=== PATIENT | male | born 1960 | race Caucasian/White ===

== ENCOUNTER 2016-09-08 11:18 | Emergency (ER) | payer BC ==
[2016-09-08] MEDS ORDERED: Aspirin 81 MG Tab.Chew PO ONE (11:43)
[2016-09-08] MEDS ORDERED: Nitroglycerin 0.4 MG Tab.SL SL ONE (11:43)
[2016-09-08] MEDS ORDERED: Alum Hydrox/Mag Hydrox/Simeth 30 ML, Lidocaine 2% 15 ML PO ONE ×2 (11:43)
[2016-09-08] MEDS ORDERED: Sodium Chloride 0.9% 1,000 ML IV SCH (11:45)
--- NOTE | 2016-09-08 11:45 | EDM.PDOC ---
ED HISTORY OF PRESENT ILLNESS - General Chief Complaint: Chest Pain Stated Complaint: CHEST PAIN Time Seen by Provider: 09/08/16 11:35 Source of Information: Reports: Patient History Limitations: Reports: No limitations - History of Present Illness INITIAL COMMENTS - FREE TEXT/NARRATIVE: Patient is a 55-year-old male who presents to the ED complaining of substernal chest discomfort. Patient states this developed last night while going to bed. States with lying down the pain increased extending across his chest. Symptoms improved with sitting up/standing/and with leaning forward. Patient had to sleep last night in the recliner. He does have a history of pericarditis x2 with somewhat similar symptoms. Discomfort is increased with taking a deep breath. Is described as sharp, achy, pressure discomfort rated a 4/10 currently. Complains of a mild headache with no dizziness or lightheadedness. He denies any fever/chills, shortness of breath, cough, or any additional viral-like symptoms. He took Aleve last night with no improvement. States the discomfort is not worsened with exertion. Nor does he recall any injury or activity that may have precipitated this. Patient denies any history of DVT, PE, hemoptysis, unilateral, Recent trauma, recent surgery, recent hospitalization. Pertinent past medical history includes pericarditis. He is currently taking no medications. He has no pertinent past surgical history. He does not smoke. Occasionally utilizes alcohol. States he has first-degree relative brother who recently due to PA. Timing/Duration: Reports: Constant, Waxing/waning Severity: moderate Location, General: Reports: chest Quality: Reports: Ache, Dull, Pressure, Sharp. Denies: Burning, Stabbing, Throbbing Improves with: Reports: Other (See HPI) Worsens with: Reports: Other (See HPI) Context, General: Denies: Activity, Exercise, Lifting, Sick contact, Trauma Associated Symptoms (General): Reports: chest pain, nausea/vomiting ( intermittent). Denies: cough, cough w sputum, diaphoresis, fever/chills, loss of appetite, shortness of breath Treatments RECONCILIATION SPECIALIST: Reports: NSAIDS - Related Data Allergies/ADRs: Allergies Allergy/AdvReac Type Severity Reaction Status Date / Time No Known Allergies Allergy Verified 09/08/16 11:28 Home Meds: Home Meds Acetaminophen/HYDROcodone [[place] 325-5 MG] 1 tab PO Q6H PRN #20 tablet 09/08/16 [Rx] Past Medical History Cardiovascular History: Reports: Other (see below) Other Cardiovascular History: pericarditis Social & Family History - Tobacco Use Smoking Status *Q: Never Smoker - Caffeine Use Caffeine Use: Reports: None - Recreational Drug Use Recreational Drug Use: No ED ROS GENERAL - Review of Systems Review Of Systems: See Below Constitutional: Denies: fever, chills HEENT: Reports: Ear pain (mild left ear ache), Throat pain (throat irritation. ) . Denies: Rhinitis, Throat swelling Respiratory: Denies: shortness of breath, wheezing, cough, sputum, hemoptysis Cardiovascular: Reports: Chest pain, Blood pressure problem. Denies: Dyspnea on exertion, Edema, Lightheadedness, Orthopnea, PND, Syncope GI/Abdominal: Denies: Abdominal pain, Constipation, Diarrhea, Nausea, Vomiting Skin: Denies: rash Neurological: Reports: headache (mild, global). Denies: dizziness, numbness, tingling, weakness ED EXAM, GENERAL - Physical Exam Exam: See Below Exam Limited By: No limitations General Appearance: alert, WD/WN, no apparent distress Eye Exam: bilateral eye: EOMI, PERRL Ears: normal external exam, normal canal, hearing grossly normal, normal TMs Nose: normal inspection, normal mucosa, no blood. No: nasal tenderness, nasal swelling Throat/Mouth: Normal inspection, Normal oropharynx, Normal voice, No airway compromise Head: atraumatic, normocephalic Neck: normal inspection, supple, non-tender, full range of motion. No: lymphadenopathy (L), lymphadenopathy (R) Respiratory/Chest: no respiratory distress, lungs clear, normal breath sounds, no accessory muscle use, chest non-tender Cardiovascular: normal peripheral pulses, regular rate, rhythm, no edema, no murmur Peripheral Pulses: 2+: radial (R) GI/Abdominal: normal bowel sounds, soft, non tender, no organomegaly, no distention Back Exam: normal inspection. No: CVA tenderness (L), CVA tenderness (R) Extremities: normal inspection, normal range of motion, non-tender, no pedal edema Neurological: alert, oriented, CN II-XII intact, normal cognition, no motor/ sensory deficits Psychiatric: normal affect, normal mood Skin Exam: Warm, Dry, Intact, Normal color, No rash Course - Vital Signs Last Recorded V/S: Last Vital Signs Temp 98.2 F 09/08/16 16:03 Pulse 89 09/08/16 16:03 Resp 16 09/08/16 16:03 BP 111/76 09/08/16 16:03 Pulse Ox 96 09/08/16 16:03 - Orders/Labs/Meds Orders: Active Orders 24 hr Category Date Time Status EKG Documentation Completion [RC] STAT Care 09/08/16 11:32 Active Peripheral IV Care [RC] . DIRECTED Care 09/08/16 11:43 Active Peripheral IV Insertion Adult [OM.PC] Routine Oth 09/08/16 11:43 Ordered Labs: Laboratory Tests 09/08/16 09/08/16 09/08/16 Range/Units 11:25 11:25 11:25 WBC 10.26 H (4.23-9.07) K/mm3 RBC 4.84 (4.63-6.08) M/mm3 Hgb 15.3 (13.7-17.5) gm/L Hct 44.8 (40.1-51.0) % MCV 92.6 H (79.0-92.2) fl MCH 31.6 (25.7-32.2) pg MCHC 34.2 (32.2-35.5) g/dl RDW Std Deviation 43.5 (35.1-43.9) fL Plt Count 261 (163-337) K/mm3 MPV 9.8 (9.4-12.3) fl Neut % (Auto) 76.7 H (34.0-67.9) % Lymph % (Auto) 11.3 L (21.8-53.1) % Bracken % (Auto) 9.7 (5.3-12.2) % Eos % (Auto) 1.8 (0.8-7.0) Baso % (Auto) 0.3 (0.1-1.2) % Neut # 7.87 H (1.78-5.38) K/mm3 Lymph # 1.16 L (1.32-3.57) K/mm3 Bracken # 1.00 H (0.30-0.82) K/mm3 Eos # 0.18 (0.04-0.54) K/mm3 Baso # 0.03 (0.01-0.08) K/mm3 ESR 10 (0-15) mm/hr Sodium (136-145) mEq/L Potassium (3.5-5.1) mEq/L Chloride (98-107) mEq/L Carbon Dioxide (21-32) mEq/L Anion Gap (5-15) BUN (7-18) mg/dL Creatinine (0.7-1.3) mg/dL Est Cr Clr Drug Dosing mL/min Estimated GFR (MDRD) (>60) mL/min BUN/Creatinine Ratio (14-18) Glucose (74-106) mg/dL Calcium (8.5-10.1) mg/dL Total Bilirubin (0.2-1.0) mg/dL AST (15-37) U/L ALT (16-63) U/L Alkaline Phosphatase (46-116) U/L Troponin I < 0.017 (0.00-0.056) ng/mL C-Reactive Protein (<1.0) mg/dL Total Protein (6.4-8.2) g/dl Albumin (3.4-5.0) g/dl Globulin gm/dL Albumin/Globulin Ratio (1-2) Lipase (73-393) U/L 09/08/16 09/08/16 Range/Units 11:25 14:41 WBC (4.23-9.07) K/mm3 RBC (4.63-6.08) M/mm3 Hgb (13.7-17.5) gm/L Hct (40.1-51.0) % MCV (79.0-92.2) fl MCH (25.7-32.2) pg MCHC (32.2-35.5) g/dl RDW Std Deviation (35.1-43.9) fL Plt Count (163-337) K/mm3 MPV (9.4-12.3) fl Neut % (Auto) (34.0-67.9) % Lymph % (Auto) (21.8-53.1) % Bracken % (Auto) (5.3-12.2) % Eos % (Auto) (0.8-7.0) Baso % (Auto) (0.1-1.2) % Neut # (1.78-5.38) K/mm3 Lymph # (1.32-3.57) K/mm3 Bracken # (0.30-0.82) K/mm3 Eos # (0.04-0.54) K/mm3 Baso # (0.01-0.08) K/mm3 ESR (0-15) mm/hr Sodium 140 (136-145) mEq/L Potassium 4.4 (3.5-5.1) mEq/L Chloride 103 (98-107) mEq/L Carbon Dioxide 27 (21-32) mEq/L Anion Gap 14.4 (5-15) BUN 19 H (7-18) mg/dL Creatinine 1.1 (0.7-1.3) mg/dL Est Cr Clr Drug Dosing 83.28 mL/min Estimated GFR (MDRD) > 60 (>60) mL/min BUN/Creatinine Ratio 17.3 (14-18) Glucose 129 H (74-106) mg/dL Calcium 8.9 (8.5-10.1) mg/dL Total Bilirubin 0.8 (0.2-1.0) mg/dL AST 26 (15-37) U/L ALT 44 (16-63) U/L Alkaline Phosphatase 96 (46-116) U/L Troponin I < 0.017 (0.00-0.056) ng/mL C-Reactive Protein 2.3 H* (<1.0) mg/dL Total Protein 7.0 (6.4-8.2) g/dl Albumin 4.2 (3.4-5.0) g/dl Globulin 2.8 gm/dL Albumin/Globulin Ratio 1.5 (1-2) Lipase 221 (73-393) U/L Meds: Medications Discontinued Medications Generic Name Dose Route Start Last Admin Trade Name Freq PRN Reason Stop Dose Admin Aspirin 324 mg 09/08/16 11:43 09/08/16 11:49 Aspirin PO 09/08/16 11:44 324 mg ONETIME ONE Administration Al Hydroxide/Mg Hydroxide 30 0 ml 09/08/16 11:43 09/08/16 11:49 ml/ Lidocaine HCl 15 ml PO 09/08/16 11:44 45 ml ONETIME ONE Administration Hydromorphone HCl 0.5 mg 09/08/16 13:04 09/08/16 13:08 Dilaudid IVPUSH 09/08/16 13:05 0.5 mg ONETIME ONE Administration Hydromorphone HCl 1 mg 09/08/16 14:16 09/08/16 14:22 Dilaudid IVPUSH 09/08/16 14:17 1 mg ONETIME ONE Administration Sodium Chloride 1,000 mls @ 125 mls/hr 09/08/16 11:45 09/08/16 11:52 Normal Saline IV 125 mls/hr ASDIRECTED NICKO Administration Sodium Chloride 100 mls @ 60 mls/hr 09/08/16 12:30 09/08/16 13:20 Normal Saline IV 60 mls/hr ASDIRECTED NICKO Administration Ibuprofen 800 mg 09/08/16 15:34 Motrin PO 09/08/16 15:35 ONETIME ONE Iopamidol 100 ml 09/08/16 12:23 09/08/16 13:20 Isovue-370 (76%) IVPUSH 09/08/16 12:24 80 ml ONETIME ONE Administration Iopamidol 50 ml 09/08/16 12:23 09/08/16 13:20 Isovue-370 (76%) IVPUSH 09/08/16 12:24 50 ml ONETIME ONE Administration Nitroglycerin 0.4 mg 09/08/16 11:43 09/08/16 11:51 Nitrostat SL 09/08/16 11:44 0.4 mg ONETIME ONE Administration Sodium Chloride 10 ml 09/08/16 11:43 09/08/16 13:20 Saline Flush FLUSH 10 ml ASDIRECTED PRN Administration Keep Vein Open Sodium Chloride 10 ml 09/08/16 12:23 09/08/16 13:45 Saline Flush FLUSH 09/08/16 12:24 10 ml ONETIME ONE Administration - Re-Assessments/Exams Free Text/Narrative Re-Assessment/Exam: EKG revealed a sinus rhythm at a rate 85 with a MI interval of 184, QTC 434, normal P axis, borderline ST elevation in lateral leads no reciprocal changes. No other acute findings noted. CXR revealed: No acute finding. Labs reviewed: White blood cell count 10.26, hemoglobin is 15.3, platelets 261, neutrophil % 6.7, neutrophil number is 7.87, ESR 10, Sodium is 140, potassium of 4.4, creatinine 1.1, Troponin is 0.017, CRP is 2.3, lipase is 221. Reassessment, patient states discomfort had no improvement with taking the nitroglycerin or GI cocktail. He states the discomfort to his chest worsened with taking the nitroglycerin. Patient walked to radiology making symptoms worse. Vital signs are stable at this point. Unclear etiology of discomfort. Will obtain CTA of the chest. 09/08/16 12:14 09/08/16 13:04 Patient is returned from CT and is requesting something for the chest discomfort. Ordered Dilaudid 0.5 mg IV. 09/08/16 14:16 Reassessment, patient complaining of some chest discomfort. Ordered 1 mg Dilaudid IVP. Ordered a second troponin. 09/08/16 15:09 CT of the chest impression: no findings of pulmonary embolism, aortic aneurysm or aortic dissection. Mild atelectasis noted within both lung bases. Difficult to exclude minimal area of pneumonia within the left lung base. Please correlate if patient has any infectious symptoms. Other findings felt to be incidental as described above. Second troponin was negative. 09/08/16 15:35 Ordered ibuprofen 800mg PO x 1. Reassessment, pain to chest drastically improved with the last dosage of dilaudid. Will discharge patient home with instructions for pericarditis. Departure - Departure Time of Disposition: 15:35 Disposition: Home, Self-Care 01 Condition: good Clinical Impression: Pericarditis Qualifiers: Pericarditis type: unspecified type Chronicity: acute Qualified Code(s): I30.9 - Acute pericarditis, unspecified Prescriptions: Acetaminophen/HYDROcodone [[place] 325-5 MG] 1 tab PO Q6H PRN #20 tablet PRN Reason: Pain (Severe 7-10) Instructions: Pericarditis Referrals: Peyman Dickinson MD [Primary Care Provider] - Forms: ED Department Discharge, Return to Work/School Form Additional Instructions: As discussed history, examination, and labs/studies suggest current symptoms are related to pericarditis. Treatment is ibuprofen 800mg every 8 hrs for one week. Can also utilize tylenol 650mg every 6 hours for pain. For severe pain take norco 5/325 mg every 6 hours as needed. Do not take norco and tylenol together. No driving today or while taking norco. If unchanged after 1 wk of ibuprofen, please followup with PCP since you may require prednisone added to treatment regimen and/or obtain echocardiogram.Please return to the E.D. for worsening pain, n/v, fever/chills, shortness of breath, dizziness/ lightheadedness, or any additional new or worsening symptoms. - My Orders Last 24 Hours: My Active Orders 09/08/16 11:32 EKG Documentation Completion [RC] STAT 09/08/16 11:43 Peripheral IV Care [RC] . DIRECTED Peripheral IV Insertion Adult [OM.PC] Routine - Assessment/Plan Last 24 Hours: My Active Orders 09/08/16 11:32 EKG Documentation Completion [RC] STAT 09/08/16 11:43 Peripheral IV Care [RC] . DIRECTED Peripheral IV Insertion Adult [OM.PC] Routine
[2016-09-08] MEDS: Sodium Chloride 0.9% 10 ML Syringe FLUSH PRN ×2 (11:49→13:20)
[2016-09-08] MEDS ORDERED: Sodium Chloride 0.9% 10 ML Syringe FLUSH ONE (12:23)
[2016-09-08] MEDS ORDERED: Iopamidol 755 Mg/ML 100 ML Bottle IVPUSH ONE (12:23)
[2016-09-08] MEDS ORDERED: Iopamidol 755 MG/ML 50 ML Bottle IVPUSH ONE (12:23)
--- NOTE | 2016-09-08 12:23 | CR ---
Chest: Two views of the chest were obtained. Comparison: No previous study. Heart size is normal. Mild tortuosity of the thoracic aorta is seen. Minimal atelectasis noted above the left hemidiaphragm. Lungs otherwise are clear. Bony structures are unremarkable for the patient's age. Impression: 1. Minimal atelectasis above the left hemidiaphragm. 2. Nothing acute is otherwise seen on two-view chest x-ray. Diagnostic code #2
[2016-09-08] MEDS ORDERED: Sodium Chloride 0.9% 100 ML IV SCH (12:30)
[2016-09-08] MEDS ORDERED: HYDROmorphone 0.5 MG/0.5 ML Syringe IVPUSH ONE (13:04)
--- NOTE | 2016-09-08 13:52 | CT ---
CT chest Technique: Multiple axial sections through the chest were obtained. Intravenous contrast was utilized. Findings: Aorta shows no aneurysmal dilatation. No aortic dissection is seen. No filling defects are seen to indicate pulmonary embolism. Mediastinum and hilar regions show no adenopathy or mass. No pericardial thickening is seen. Small portion of the visualized upper abdominal structures are within normal limits. There is a hyperenhancing lesion seen within the left lobe of the liver most likely representing hemangioma. Very minimal coronary artery calcification is seen. Mild parenchymal density seen within both lung bases most likely representing atelectasis although minimal area of pneumonia is possible within the left base. Bone window settings were reviewed which shows minimal degenerative endplate spurring within the lower thoracic and upper lumbar spine. Impression: 1. No findings of pulmonary embolism, aortic aneurysm or aortic dissection. 2. Mild atelectasis noted within both lung bases. Difficult to exclude minimal area of pneumonia within the left lung base. Please correlate if patient has any infectious symptoms. 3. Other findings felt to be incidental as described above. Diagnostic code #2
[2016-09-08] MEDS ORDERED: HYDROmorphone 1 MG/ML Syringe IVPUSH ONE (14:16)
[2016-09-08] MEDS ORDERED: Ibuprofen 800 MG Tab PO ONE (15:34)
[2016-09-08 16:29] VITALS: BP 111/76
== END 2016-09-08 16:03 | disposition home or self-care (01) ==
LOC: JD.ED 11:18
DX: I30.9 Acute pericarditis, unspecified (principal)
CPT/HCPCS: 36415; 71020; 71275; 80053; 83690; 84484; 85025; 85652; 86140; 93005; 96361; 96374; 96376; 99285; A9270; J1170; J7030; J7040; J7050; Q9967; 99284

== ENCOUNTER 2020-05-28 19:48 | Emergency (ER) | payer BC ==
[2020-05-28 20:05] VITALS: BP 148/85; PULSE 65
[2020-05-28] MEDS ORDERED: Lidocaine 1% 10 ML MDV INJECT ONE (20:17)
[2020-05-28] MEDS ORDERED: Diphtheria,Pertussis(Acell),Tetanus Vaccine 0.5 ML Syringe IM ONE (20:17)
[2020-05-28] MEDS ORDERED: Penicillin V Potassium 500 MG Tab PO ONE (21:43)
--- NOTE | 2020-05-28 21:49 | EDM.PDOC ---
ED HPI GENERAL MEDICAL PROBLEM - General Chief Complaint: Laceration Stated Complaint: lip laceration from fall Time Seen by Provider: 05/28/20 20:05 Source of Information: Reports: Patient, RN Notes Reviewed - History of Present Illness INITIAL COMMENTS - FREE TEXT/NARRATIVE: 59 yr old male tripped, fell in his shop striking face against a work bench. Deep jagged laceration L lower mouth and multiple deep jagged lacerations R upper mouth. No teeth loose or knocked out. No LOC. No warner or other unusual sx. Upper Lip Pain Score (Numeric/FACES): 6 - Related Data Allergies Allergy/AdvReac Type Severity Reaction Status Date / Time No Known Allergies Allergy Verified 05/28/20 20:05 Home Meds: Home Meds Penicillin V Potassium [Veetids] 500 mg PO Q6H #20 tab 05/28/20 [Rx] Past Medical History - Past Health History Medical/Surgical History: Denies Medical/Surgical History Cardiovascular History: Reports: Other (See Below) Other Cardiovascular History: pericarditis Psychiatric History: Reports: None Social & Family History - Tobacco Use Tobacco Use Status *Q: Unknown Ever Used Tobacco - Caffeine Use Caffeine Use: Reports: None ED ROS GENERAL - Review of Systems Review Of Systems: See Below Constitutional: Denies: Fever, Chills HEENT: Reports: Other (jagged mouth lacerations as described above). Denies: Ear Discharge, Nose Pain, Vertigo, Vision Change Respiratory: Denies: Shortness of Breath Cardiovascular: Denies: Chest Pain GI/Abdominal: Denies: Abdominal Pain, Nausea, Vomiting Musculoskeletal: Denies: Neck Pain, Back Pain Neurological: Denies: Dizziness, Headache ED EXAM, SKIN/RASH Exam: See Below General Appearance: Alert, Mild Distress Eye Exam: Bilateral Eye: PERRL Ears: Normal External Exam Nose: Normal Inspection Throat/Mouth: Normal Teeth, Normal Gums, Normal Voice, Other (2 cm jagged laceration L lower lip, 3 cm jagged laceration R lower lip, R mid mid mouth and 2nd 2 cm laceration lateral to that R lower mouth with narrow band of intact tissue between this 2 large deep jagged lacerations l) ED SKIN PROCEDURES - Laceration/Wound Repair Right Mouth Appearance: Irregular, Other (jagged deep laceration R lower mouth, does cross [place] border) Local Anesthesia - Lidocaine (Xylocaine): 1% Plain Skin Prep: Saline Suture Size: 4-0 Suture Type: Nylon Suture Size: 4-0 Repaired with: Vicryl Left Lower Mouth Appearance: Irregular, Other (2 cm long deep, jagged gaping irregular lace with multiple flaps) Distal NVT: [facility] Intact Anesthetic Type: Local Local Anesthesia - Lidocaine (Xylocaine): 1% Plain Exploration/Debridement/Repair: Minimal Debridement Suture Size: 4-0 # of Sutures: 8 Suture Type: Nylon Suture Size: 4-0 # of Sutures: 1 Course - Vital Signs Last Recorded V/S: Last Vital Signs Temp 97.2 F 05/28/20 20:03 Pulse 65 05/28/20 20:03 Resp 16 05/28/20 20:03 BP 148/85 H 05/28/20 20:03 Pulse Ox 98 05/28/20 20:03 - Orders/Labs/Meds Meds: Medications Discontinued Medications Generic Name Dose Route Start Last Admin Trade Name Freq PRN Reason Stop Dose Admin Diphtheria/Tetanus/Acell Pertussis 0.5 ml 05/28/20 20:17 05/28/20 21:36 Adacel IM 05/28/20 20:18 0.5 ml .ONCE ONE Administration Lidocaine HCl 10 ml 05/28/20 20:17 05/28/20 21:35 Xylocaine 1% INJECT 05/28/20 20:18 10 ml ONETIME ONE Administration Penicillin V Potassium 500 mg 05/28/20 21:43 05/28/20 21:50 Veetids PO 05/28/20 21:44 500 mg ONETIME ONE Administration - Re-Assessments/Exams Free Text/Narrative Re-Assessment/Exam: 05/28/20 23:45 2nd laceration R upper mouth lateral to first laceration documented above. 2 cm long. Moderately deep, also jagged with flap configuration, gaping. No foreign mat seen. Cleaned with NS. Anesth. with 1 % lidocaine. Total of about 20 4-0 ethilon sutures the combined 2 laceration R upper mouth and about 5 4- 0 vicryl sutures. Departure - Departure Time of Disposition: 21:46 Disposition: Home, Self-Care 01 Condition: Fair Clinical Impression: Laceration of mouth - Discharge Information Prescriptions: Penicillin V Potassium [Veetids] 500 mg PO Q6H #20 tab Instructions: Mouth Laceration, [id number] Referrals: PCP,None [Primary Care Provider] - Forms: ED Department Discharge Additional Instructions: laceration care instr. Stitches out in 1 week, next Thursday. Call for appt. They can be taken out at clinic of your choice. Ice packs and elevation for swelling, especially this evening and tomorrow. Tylenol 3 to 4 times daily for discomfort as needed. Pen VK antibiotic 500 mg 4 times daily for 5 days or until gone. Prescription has been [facility] to [facility] You can pick that up tomorrow AM. Showering is OK. Keep mouth clean. Have rechecked any sign of infection. Sepsis Event Note (ED) - Evaluation Sepsis Screening Result: No Definite Risk - Focused Exam Vital Signs: Vital Signs Temp Pulse Resp BP Pulse Ox 05/28/20 20:03 97.2 F 65 16 148/85 H 98
== END 2020-05-28 22:00 | disposition home or self-care (01) ==
LOC: JD.ED 19:48
DX: S01.512A Laceration without foreign body of oral cavity, initial encounter (principal); Z23 Encounter for immunization; W01.198A Fall on same level from slipping, tripping and stumbling with subsequent striking against other object, initial encounter; Y92.513 Shop (commercial) as the place of occurrence of the external cause
CPT/HCPCS: 12002; 12011; 90471; 90715; 99282; 99282-25; A9270-GY; J2001

== ENCOUNTER 2021-06-06 08:06 | Day surgery (SDC) | payer BC ==
--- NOTE | 2021-06-05 14:14 | PCM.PREANE ---
Preanesthetic Assessment - Procedure Proposed Procedure: Right Total Knee Arthroplasty - Anesthesia/Transfusion/Family Hx Anesthesia History: Prior Anesthesia Without Reaction Family History of Anesthesia Reaction: No Transfusion History: No Prior Transfusion(s) Intubation History: Unknown - Review of Systems General: No Symptoms Pulmonary: No Symptoms (Smoker: only when drinking ETOH. ETOH: rarely) Cardiovascular: No Symptoms (Patient has not taken prescribed lisinopril and BP today is good. Pericarditis history of, 15 yrs ago angiogram with no need for stents.) Gastrointestinal: No Symptoms Neurological: No Symptoms Other: Reports: None - Physical Assessment NPO Status Date: 06/05/21 NPO Status Time: 23:59 Vital Signs: HR:57 Sat: 98% Temp: 97.2 B/P: 113/82 Resp: 16 Height: 1.83 m Weight: 82 kg ASA Class: 2 Mental Status: Alert & Oriented x3 Airway Class: Mallampati = 2 Dentition: Reports: Normal Dentition, Caries Thyro-Mental Finger Breadths: 3 Mouth Opening Finger Breadths: 3 ROM/Head Extension: Full Lungs: Clear to Auscultation, Normal Respiratory Effort Cardiovascular: Regular Rate, Regular Rhythm, No Murmurs - Lab Values: All labs reviewed and noted and within acceptable ranges to proceed with scheduled procedure. - Imaging/EKG Impressions: CXR: negative EKG: SR rate=71, LAD, inverted Twaves lead III., probable left atrial abnormality - Allergies Allergies/Adverse Reactions: Allergies Allergy/AdvReac Type Severity Reaction Status Date / Time No Known Allergies Allergy Verified 06/05/21 18:35 - Anesthesia Plan Pre-Op Medication Ordered: Other (preoperative oral pain meds (lyrica, tylenol, oxycontin) @ 0845) - Acknowledgements Anesthesia Type Planned: Spinal (Right Adductor Canal Block under US guidance for post operative pain control requested by Dr. Metz.) Pt an Appropriate Candidate for the Planned Anesthesia: Yes Alternatives and Risks of Anesthesia Discussed w Pt/Guardian: Yes Pt/Guardian Understands and Agrees with Anesthesia Plan: Yes PreAnesthesia Questionnaire - Past Health History Medical/Surgical History: Denies Medical/Surgical History Cardiovascular History: Reports: Other (See Below) Other Cardiovascular History: pericarditis Psychiatric History: Reports: None - HOME MEDS Home Medications: Home Meds Aspirin [Aspirin EC] 325 mg PO BID #60 tab 06/05/21 [Rx] Cholecalciferol (Vitamin D3) [Vitamin D3] 5,000 unit PO DAILY 06/05/21 [History] Cyclobenzaprine [Flexeril] 10 mg PO BID PRN #20 tab 06/05/21 [Rx] Multivitamin 1 tab PO DAILY 06/05/21 [History] oxyCODONE 5 - 10 mg PO Q4H PRN #40 tab 06/05/21 [Rx] - CURRENT (IN HOUSE) MEDS Current Meds: Current Medications Morphine Sulfate 8 mg/Epinephrine HCl 0.3 mg/Cefuroxime Sodium 750 mg/Ketorolac Tromethamine 30 mg/Sodium Chloride 7.9 ml 0 mg .XX ASDIRECTED PRN PRN Reason: Pain Stop: 06/06/21 16:00 Lactated Ringer's (Ringers, Lactated) 1,000 mls @ 125 mls/hr IV ASDIRECTED NICKO Stop: 06/06/21 23:00 Lidocaine/Sodium Bicarbonate (Lidocaine 1%/Sod Bicarbonate In Ns 8.4% 1 Ml Syringe) 0.25 ml IDERM ONETIME PRN PRN Reason: Prior to IV Start Stop: 06/06/21 18:00 Sodium Chloride (Sodium Chloride 0.9% 10 Ml Syringe) 10 ml FLUSH ASDIRECTED PRN PRN Reason: Keep Vein Open Stop: 06/06/21 18:00
[~2021-06-06 08:06] MED LIST: Acetaminophen 325 MG Tab PO SCH; Lactated Ringers 1,000 ML IV SCH; Lidocaine 1%/Sod Bicarbonate in NS 8.4% 1 ML Syringe IDERM PRN; Morphine 8 MG, EPINEPHrine 0.3 MG, Cefuroxime 750 MG, Ketorolac 30 MG, Sodium Chloride ... PRN; Pregabalin 25 MG Cap PO SCH; Sodium Chloride 0.9% 10 ML Syringe FLUSH PRN; oxyCODONE ER 10 MG TAB.ER PO SCH
[2021-06-06] MEDS ORDERED: Ropivacaine 0.5% 5 MG/ML 30 ML SDV ONE (09:00)
[2021-06-06] MEDS ORDERED: EPINEPHrine 1 MG/ML SDV ONE (09:00)
[2021-06-06] MEDS ORDERED: Ondansetron 4 MG/2 ML SDV ONE (09:32)
[2021-06-06] MEDS ORDERED: Lidocaine 1% 4 ML ONE (09:32)
[2021-06-06] MEDS ORDERED: fentaNYL 100 MCG/2 ML SDV ONE (09:32)
[2021-06-06] MEDS ORDERED: Midazolam 1 MG/ML 2 ML SDV ONE (09:32)
[2021-06-06] MEDS ORDERED: Propofol 200 MG/20 ML SDV ONE ×2 (09:32→10:40)
[2021-06-06] MEDS ORDERED: Vancomycin 1 GM SDV ONE (09:33)
[2021-06-06] MEDS ORDERED: ceFAZolin 1 GM Vial ONE (09:36)
[2021-06-06] MEDS ORDERED: fentaNYL 100 MCG/2 ML SDV IVPUSH PRN (11:42)
--- NOTE | 2021-06-06 11:43 | PCM.POSTAN ---
POST ANESTHESIA ASSESSMENT - MENTAL STATUS Mental Status: Alert, Oriented - VITAL SIGNS Vital Signs: Last Vital Signs Temp 36.2 C 06/06/21 08:20 Pulse 57 L 06/06/21 08:20 Resp 16 06/06/21 08:20 BP 113/82 06/06/21 08:20 Pulse Ox 98 06/06/21 08:20 - RESPIRATORY Respiratory Status: Respiratory Rate WNL, Airway Patent, O2 Saturation Stable, Supplemental Oxygen - CARDIOVASCULAR CV Status: Pulse Rate WNL, Blood Pressure Stable - GASTROINTESTINAL GI Status: No Symptoms - PAIN Pain Score: 0 - POST OP HYDRATION Hydration Status: Adequate & Stable - OBSERVATIONS Free Text/Narrative:: no anesthesia complications noted
--- NOTE | 2021-06-06 12:03 | PCM.SN.2 ---
- Free Text/Narrative Note: Right selective femoral nerve block at the adductor canal for post-procedure pain control under US guidance requested by Dr. Metz. Time Out: 1147 Start: 1147 End: 1155 Chart reviewed. Consent signed. Questions answered. Appropriate monitors applied. Time out performed. right mid-shaft femur identified with ultrasound, scanning medially of femur, the femoral artery in the adductor canal visualized, and the femoral nerve located laterally to the artery. The skin was prepped lateral to the ultrasound probe with chlorahexadine times two. The 21ga 4 insulated block needle was inserted under direct ultrasound guidance into the adductor canal. 25mL of 0.5% ropivacaine with 1:200,000 epinephrine was injected circumferentially around the nerve with intermittent negative aspiration noted. Patient tolerated the procedure well. Sterile technique noted along with sterile gloves, mask, and sterile probe cover. See picture on progress note and vital signs on nurses notes. Block completed in PACU. Sam Pierce CRNA
--- NOTE | 2021-06-06 13:19 | CR ---
Right knee: AP and lateral views of the right knee were obtained. Comparison: Prior right knee CT study of 05/17/21. Knee prosthesis is seen. Patellar prosthesis is noted. Components show normal alignment. Bone herman are seen within the proximal anterior tibia. Broken screw is noted posteriorly above the knee. No acute osseous abnormality is seen. Soft tissue air is noted. Impression: 1. Satisfactory postoperative radiographic appearance of recently placed right knee prostheses. 2. Other findings believed to be incidental as noted above. Diagnostic code #2
[2021-06-06] MEDS ORDERED: oxyCODONE 5 MG Tab PO ONE (14:00)
--- NOTE | 2021-06-06 14:23 | PCM48HPAN ---
Post Anesthesia Note - EVALUATION WITHIN 48HRS OF ANESTHETIC Vital Signs in Normal Range: Yes Patient Participated in Evaluation: Yes Respiratory Function Stable: Yes Airway Patent: Yes Cardiovascular Function Stable: Yes Hydration Status Stable: Yes Pain Control Satisfactory: Yes Nausea and Vomiting Control Satisfactory: Yes Mental Status Recovered: Yes Vital Signs: Last Vital Signs Temp 36.5 C 06/06/21 11:36 Pulse 57 L 06/06/21 08:20 Resp 15 06/06/21 12:29 BP 116/81 06/06/21 12:29 Pulse Ox 99 06/06/21 12:29 - COMMENTS/OBSERVATIONS Free Text/Narrative:: no anesthesia complications noted
[2021-06-06 17:21] VITALS: BP 91/56; PULSE 57
--- NOTE | 2021-06-16 17:06 | PCM.OPNOTE ---
- General Post-Op/Procedure Note Date of Surgery/Procedure: 06/06/21 Operative Procedure(s): right total knee arthroplasty with el[employer] robot[employer] Pre Op Diagnosis: right knee osteoarthrosis Post-Op Diagnosis: Same Anesthesia Technique: Local, MAC, Spinal Primary Surgeon: Shine Metz Anesthesia Provider: Sam Pierce Radiology Technologist: Sandra Mesa Radiology Technologist: Alisa Tay EBL in mLs: 150 Complications: None Condition: Good Free Text/Narrative:: 12/01 9mm 38x11
--- NOTE | 2021-06-17 10:45 | OR ---
DATE OF OPERATION: 06/06/2021 SURGEON: Shine Metz MD OPERATION PERFORMED: Right total knee arthroplasty with [employer] robot[employer]. PREOPERATIVE DIAGNOSIS: Right knee osteoarthrosis. POSTOPERATIVE DIAGNOSIS: Right knee osteoarthrosis. ANESTHESIA: Local MAC with spinal. ANESTHESIA PROVIDER: Frank Schneider. ASSISTANTS: Sandra Mesa PA-C; and Alisa Tay LPN. ESTIMATED BLOOD LOSS: 150 mL. COMPLICATIONS: None. CONDITION: Stable. IMPLANTS: 1. Lin size 6 press-fit CR femur. 2. Harwood size 5 press-fit tibial baseplate. 3. Lin size 5 9 mm CS polyethylene insert. 4. Lin size 38 x 11 mm press-fit patella. DESCRIPTION OF PROCEDURE: The patient was identified in the preop holding area. Proper site was marked and identified by the surgeon. The patient was taken back to the operating theater, where after adequate anesthesia, the patient's right lower extremity had a nonsterile tourniquet applied and then it was sterilely prepped and draped in the usual sterile fashion. OR time-out was performed. The patient received 2 g IV Ancef. Leg taylor was then applied to the right lower extremity. At this time, the right lower extremity was exsanguinated. Tourniquet was insufflated to 250 mmHg. Standard anterior incision was made. Medial parapatellar arthrotomy was created. Deep fibers of the MCL were raised and anterior fat pad was resected. Attention was turned to the patella. Patella measured a 26, it was resected to a 15 for a 38 x 11 mm patella. Drill holes were then drilled. Attention was then turned to the femur. Two 4.0 Schanz pins were placed intra-incisionally on the femur for the Harwood Fah[employer] robotic array and then 2 more were placed on the tibia 3 fingerbreadths below the tibial tubercle. The Harwood Fahad robotic arrays were placed on both the femur and the tibia at this time as well as checkpoints on the femur and tibia. Hip center rotation was then obtained. The medial and lateral malleoli were marked as well as the checkpoints were marked for the Lin Fahad robotic plan. The patient's knee was brought to full extension, varus and valgus stresses were applied, and then into 90 degrees of flexion. Harwood Fahad robotic plan for this patient was then undertaken to match the flexion and extension gaps. A straight saw blade was then brought in. Tibial cut was completed as well as an anterior femoral cut, anterior chamfer cut, and posterior femoral cut. Saw blade was then switched out and the distal femoral cut as well as the posterior chamfer cut was completed. All bony fragments were removed. At this time, medial and lateral menisci were resected as well as any posterior osteophytes. Attention was turned to the tibia. The size 5 trial baseplate was placed on the tibia and a size 6 trial femur was placed on the femur. A size 5 9 mm CS trial poly was placed. The patient's knee was brought to full extension and flexion. Varus and valgus stresses were applied, was found to be stable with no instability. No signs of liftoff or loosening on the tibial baseplate. At this time, femoral drill holes were drilled, and the tibia was stamped and drilled in proper rotation. All trial implants were then removed. The size 5 tibial baseplate was impacted into place, size 6 femoral component was impacted into place, and then a size 5 9 mm CS polyethylene insert was impacted into place. A size 38 x 11 mm press-fit patella was then press-fit into place. The tourniquet was deflated. Bleeders were cauterized. 1 L pulse lavage irrigation with Ancef was irrigated through the knee along with 400 mL IrriSept irrigation. Periarticular injection was completed. Topical tranexamic acid and vancomycin powder were applied. All checkpoints and pins were removed. At this point, a #2 barbed suture was used for closure of the medial parapatellar arthrotomy in flexion. 2- 0 Vicryl and Stratafix were used for subcutaneous closure. Prineo was used for cutaneous closure. 3-0 nylons were used for closure of the pin holes on the tibia. The patient had a sterile soft dressing applied. The patient had an RADHA wrap applied and was sent to PACU in stable condition. The patient tolerated the procedure well. MMAGUSTIN /[id number]
== END 2021-06-06 14:35 | disposition home or self-care (01) ==
LOC: JD.SDS 08:06
PROVIDERS: ATTEND Orthopaedic Surgery
DX: M17.11 Unilateral primary osteoarthritis, right knee (principal); I10 Essential (primary) hypertension; Z79.82 Long term (current) use of aspirin; Z98.890 Other specified postprocedural states; Z87.891 Personal history of nicotine dependence; Z79.899 Other long term (current) drug therapy
CPT/HCPCS: 01402; 64450; 73560-26-RT; 73560-RT; 76942; 97110-GP; 97116-GP; 97161-GP; A9270-GY; C1713; C1776; J0171; J0690; J0697; J1885; J2250; J2270; J2405; J2704; J2795; J3010; J3370; J7120

== ENCOUNTER 2021-11-14 16:06 | Emergency (ER) | payer BC ==
[2021-11-14] MEDS ORDERED: Sodium Chloride 0.9% 10 ML Syringe FLUSH PRN (16:30)
[2021-11-14] MEDS ORDERED: HYDROmorphone 1 MG/ML Syringe IVPUSH ONE (17:05)
[2021-11-14] MEDS ORDERED: HYDROmorphone 0.5 MG/0.5 ML Syringe IVPUSH ONE (18:03)
[2021-11-14 18:25] VITALS: BP 142/92; PULSE 82
== END 2021-11-14 18:16 | disposition home or self-care (01) ==
LOC: JD.ED 16:06
DX: R07.89 Other chest pain (principal); N28.9 Disorder of kidney and ureter, unspecified; M25.512 Pain in left shoulder; I10 Essential (primary) hypertension; Z79.82 Long term (current) use of aspirin; Z79.899 Other long term (current) drug therapy
CPT/HCPCS: 36415; 71045; 80053; 84484; 85025; 85379; 86140; 93005; 96374; 96376; 99284; J1170; J3490; 93010

== ENCOUNTER 2024-04-06 18:11 | Emergency (ER) | payer BC ==
[2024-04-06 18:26] VITALS: BP 155/91; PULSE 85
[2024-04-06 18:27] LABS: BASOPHILS PERCENT AUTO 0.3 % (0.0-1.0); EOSINOPHILS ABSOLUTE AUTO 0.1 K/mm3 (0.0-0.4); EOSINOPHILS PERCENT AUTO 0.7 % (0.0-6.0); HEMATOCRIT 44.8 % (42.0-52.0); HEMOGLOBIN 15.3 gm/dl (14.0-18.0); IMMATURE GRAN ABSOLUTE AUTO 0.03 K/mm3 (0.00-0.05); IMMATURE GRAN PERCENT AUTO 0.3 % (0.0-0.4); LYMPHOCYTES ABSOLUTE AUTO 1.4 K/mm3 (1.0-4.8); MEAN CORPUSCULAR HEMOGLOBIN 32.2 pg (28.0-32.0); MEAN CORPUSCULAR HGB CONC 34.2 g/dl (32.0-36.0); MEAN CORPUSCULAR VOLUME 94.3 fl (83.0-99.0); MEAN PLATELET VOLUME 9.9 fl (9.4-12.4); MONOCYTES ABSOLUTE AUTO 0.9 K/mm3 (0.0-0.8); MONOCYTES PERCENT AUTO 7.9 % (0.0-8.0); NEUTROPHILS ABSOLUTE AUTO 8.3 K/mm3 (1.8-7.7); NEUTROPHILS PERCENT AUTO 77.8 % (41.0-71.0); PLATELET COUNT,PLT 238 K/mm3 (150-400); RED BLOOD CELL COUNT 4.75 M/mm3 (4.52-5.90)
[2024-04-06 18:50] LABS: INR 0.96; PROTHROMBIN TIME 10.2 SECONDS (9.7-12.0)
[2024-04-06 18:52] LABS: PTT,PARTIAL THROMBOPLSTIN TIME 27.9 SECONDS (21.7-31.4)
[2024-04-06 19:05] LABS: A/G RATIO 1.2 (1-2); ALBUMIN 4.1 g/dl (3.4-5.0); BUN/CREATININE RATIO 11.8 (14-18); CREATININE 1.1 mg/dL (0.7-1.3); EST CRCL DRUG DOSING (CG) 75.44 mL/min; MAGNESIUM 1.9 mg/dL (1.8-2.4); PROTEIN TOTAL,TP 7.6 g/dl (6.4-8.2)
[2024-04-06] MEDS: Sodium Chloride 0.9% 1,000 ML IV SCH (19:34)
[2024-04-06 19:44] LABS: LACTIC ACID 0.6 mmol/L (0.4-2.0)
[2024-04-06] MEDS: Iopamidol 755 Mg/ML 100 ML Bottle IVPUSH ONE (20:04)
[2024-04-06] MEDS: Sodium Chloride 0.9% 10 ML Syringe FLUSH PRN (20:04)
[2024-04-06] MEDS: Sodium Chloride 0.9% 45 ML IV SCH (20:05)
== END 2024-04-06 21:50 | disposition home or self-care (01) ==
LOC: JD.ED 18:11
DX: I30.9 Acute pericarditis, unspecified (principal); I10 Essential (primary) hypertension; Z79.899 Other long term (current) drug therapy
CPT/HCPCS: 36415; 71045; 71275; 80053; 83605; 83735; 83880; 84484; 85025; 85379; 85610; 85652; 85730; 86140; 87040; 93005; 96360; 96361; 99285; J3490; J7030; Q9967

== ENCOUNTER 2024-04-15 20:16 | Emergency (ER) | payer BC ==
[2024-04-15 21:17] LABS: BASOPHILS PERCENT AUTO 0.4 % (0.0-1.0); EOSINOPHILS ABSOLUTE AUTO 0.2 K/mm3 (0.0-0.4); EOSINOPHILS PERCENT AUTO 2.6 % (0.0-6.0); HEMATOCRIT 32.7 % (42.0-52.0); IMMATURE GRAN ABSOLUTE AUTO 0.06 K/mm3 (0.00-0.05); IMMATURE GRAN PERCENT AUTO 0.8 % (0.0-0.4); LYMPHOCYTES ABSOLUTE AUTO 1.2 K/mm3 (1.0-4.8); LYMPHOCYTES PERCENT AUTO 16.1 % (24.0-44.0); MEAN CORPUSCULAR HEMOGLOBIN 31.8 pg (28.0-32.0); MEAN CORPUSCULAR HGB CONC 33.6 g/dl (32.0-36.0); MEAN CORPUSCULAR VOLUME 94.5 fl (83.0-99.0); MEAN PLATELET VOLUME 9.6 fl (9.4-12.4); MONOCYTES ABSOLUTE AUTO 0.7 K/mm3 (0.0-0.8); MONOCYTES PERCENT AUTO 9.1 % (0.0-8.0); NEUTROPHILS ABSOLUTE AUTO 5.2 K/mm3 (1.8-7.7); PLATELET COUNT,PLT 322 K/mm3 (150-400); RED BLOOD CELL COUNT 3.46 M/mm3 (4.52-5.90); WHITE BLOOD CELL COUNT,WBC 7.34 K/mm3 (3.9-11.3)
[2024-04-15 21:51] LABS: A/G RATIO 0.7 (1-2); ALBUMIN 2.6 g/dl (3.4-5.0); BILIRUBIN TOTAL 1.1 mg/dL (0.2-1.0); CALCIUM 8.4 mg/dL (8.5-10.1); EST CRCL DRUG DOSING (CG) 82.99 mL/min; PROTEIN TOTAL,TP 6.6 g/dl (6.4-8.2); TSH 2.137 uIU/mL (0.358-3.74)
[2024-04-15] MEDS: Iopamidol 755 Mg/ML 100 ML Bottle IVPUSH ONE (23:34)
[2024-04-16] MEDS: Magnesium Oxide 400 MG Tab PO ONE (00:35)
[2024-04-16] MEDS: Furosemide 40 MG Tab PO ONE (00:35)
[2024-04-16] MEDS: Potassium Chloride 10 MEQ Tab.ER PO ONE (00:35)
[2024-04-16] MEDS: Magnesium Oxide 400 MG Tab ONE (05:10)
[2024-04-16 05:19] VITALS: BP 141/79; PULSE 77
== END 2024-04-16 00:43 | disposition home or self-care (01) ==
LOC: JD.ED 20:16
DX: I31.39 Other pericardial effusion (noninflammatory) (principal); J90 Pleural effusion, not elsewhere classified; I10 Essential (primary) hypertension; Z79.899 Other long term (current) drug therapy; Z79.2 Long term (current) use of antibiotics
CPT/HCPCS: 36415; 71275; 80053; 83605; 83880; 84443; 84484; 85025; 93005; 99285; A9270; Q9967; 93010; 99284